=== PATIENT | female | born 1965 | race Caucasian/White ===

== ENCOUNTER → 2024-09-14 | Outpatient (CLI) | payer BC, SELFPAY ==
[2024-09-14 17:04] LABS: Collection Type, Urine Clean Catch
[2024-09-14 17:55] LABS: Basophils # (Auto) 0.1 Thou/mm3 (0.0-0.2); Basophils % (Auto) 1 % (0-2.5); Eosinophils # (Auto) 0.1 Thou/mm3 (0.0-0.5); Eosinophils % (Auto) 1 % (0-10); Hematocrit 37.9 % (36.0-46.0); Hemoglobin 12.2 g/dL (12.0-16.0); Immature Granulocytes % (Auto) 0 % (0-0); Immature Granulocytes Auto 0.03 Thou/mm3 (0.00-0.00); Lymphocytes % (Auto) 31 % (10-50); Mean Corpuscular HGB Conc 32.2 g/dl (31.0-37.0); Mean Corpuscular Hemoglobin 28.6 pg (25.0-35.0); Mean Corpuscular Volume 89 fL (80-100); Monocytes # (Auto) 0.8 Thou/mm3 (0.0-0.8); Monocytes % (Auto) 9 % (0-12); Neutrophils # (Auto) 5.7 Thou/mm3 (1.8-7.7); Neutrophils % (Auto) 59 % (37-80); Nucleated Red Blood Cell % 0 /100 WBC (0); Platelet Count 199 Thou/mm3 (140-440); RDW Standard Deviation 43.8 fL (36.4-46.3); Red Blood Count 4.27 Miln/mm3 (4.00-5.20); White Blood Count 9.7 Thou/mm3 (3.6-11.0)
[2024-09-14 18:07] LABS: Glucose Estimated Average 128 mg/dL (80-131); Hemoglobin A1C 6.1 % Hgb (4.8-6.0)
[2024-09-14 18:11] LABS: Alanine Aminotransferase 14 U/L (10-49); Albumin, Serum 4.5 gm/dL (3.4-4.8); Albumin/Globulin Ratio 1.7 (1.2-2.2); Alkaline Phosphatase 98 U/L (46-116); Anion Gap 8 (7-16); Aspartate Amino Transferase 14 U/L (0-34); BUN/Creatinine Ratio 20 Ratio (12-20); Bilirubin,Total 0.5 mg/dL (0.3-1.2); Blood Urea Nitrogen 16 mg/dL (9-23); Calcium 9.4 mg/dL (8.3-10.6); Calcium (Corrected) 9.4 mg/dL (8.5-10.1); Carbon Dioxide 27.9 mMol/L (20.0-31.0); Cardiac Risk Estimate 3.6 RATIO (3.7-5.6); Chloride 107 mMol/L (98-107); Cholesterol 189 mg/dL (132-200); Creatinine (Component) 0.8 mg/dL (0.6-1.3); Globulin 2.6 gm/dL (2.3-3.5); Glucose 88 mg/dL (74-106); HDL Cholesterol 53 mg/dL (40-60); LDL Cholesterol,Calculated 124 mg/dL (0-130); Osmolality,Calculated 285 (275-295); Potassium 3.9 mMol/L (3.4-5.1); Sodium 143 mMol/L (136-145); Total Protein 7.1 gm/dL (5.7-8.2); Triglycerides 58 mg/dL (30-150); eGFR > 60 See Note
[2024-09-14 18:14] LABS: Bilirubin,Urine Negative (Negative); Blood,Urine 2+ (Negative); Clarity,Urine Clear (Clear/Hazy); Color,Urine Lt-Yellow (Lt Yel-Yel); Culture Indicated,Urine Not Indicated; Glucose, Urine Negative (Negative); Ketones,Urine Negative (Negative); Leukocyte Esterase,Urine Negative (Negative); Nitrite,Urine Negative (Negative); PH,Urine 6.5 (5.0-7.0); Protein,Urine Negative (Neg - Trace); RBC,Urine 16 /hpf (0-3); Specific Gravity,Urine 1.019 (1.001-1.035); Squamous Epithelial Cell,Urine 1 /hpf (0-5); Urobilinogen,Urine Negative mg/dL (0.0-1.0); WBC,Urine 1 /hpf (0-5)
== END | disposition home or self-care (01) ==
LOC: COPL 16:37
PROVIDERS: PCP Nurse Practitioner Family; Referring Provider Nurse Practitioner Family; Visit Provider Nurse Practitioner Family
DX: E78.5 Hyperlipidemia, unspecified (principal); I10 Essential (primary) hypertension; N30.01 Acute cystitis with hematuria; R73.03 Prediabetes
CPT/HCPCS: 36415; 80053; 80061; 81001; 83036; 84443; 85025; 87086

== ENCOUNTER → 2024-09-23 | Outpatient (CLI) | payer BC, SELFPAY ==
[2024-09-23 14:28] LABS: Free T4 (Free Thyroxine) 1.03 ng/dL (0.89-1.76); Thyroid Stimulating Hormone 0.51 uIU/mL (0.55-4.78)
[2024-09-29 06:41] LABS: T3,Total* 110 ng/dL (76-181); Thyroid Peroxidase Antibodies* <1 IU/mL (<9)
== END | disposition home or self-care (01) ==
LOC: COPL 13:29
PROVIDERS: PCP Nurse Practitioner Family; Referring Provider Nurse Practitioner Family; Visit Provider Nurse Practitioner Family
DX: E05.40 Thyrotoxicosis factitia without thyrotoxic crisis or storm (principal)
CPT/HCPCS: 36415; 84439; 84443; 84480; 86376

== ENCOUNTER → 2024-10-12 | Outpatient (CLI) | payer BC, SELFPAY ==
--- NOTE | 2024-10-12 14:45 | XR_ITS ---
Examination: Screening digital mammography, bilateral Computer aided detection 3-D breast Tomosynthesis, bilateral Date and time of exam: October 12, 2024 1431 hours Compared to mammograms dating to 03/28/2006 Indication: Screening Technique: Nonmagnified MLO, CC views of the breasts to been obtained, reconstructed from 3-D Tomosynthesis images. R2 computer aided detection program utilized for evaluation of suspicious masses and/or abnormal calcifications. 3-D Tomosynthesis images obtained. Findings: Scattered areas of fibroglandular density. Skin lesion right breast. Benign calcifications. 4 mm focal asymmetry outer left breast 7.3 cm from the nipple IMPRESSION: BI-RADS Category 0 clinical pain: Need additional imaging evaluation 4 mm focal asymmetry outer left breast 7.3 cm from the nipple, recommend follow-up spot tomographic views upper outer quadrant left breast, bilateral breast sonography to complete the workup
== END | disposition home or self-care (01) ==
LOC: CDIM 14:22
PROVIDERS: Referring Provider Nurse Practitioner Family; Visit Provider Nurse Practitioner Family
DX: Z12.31 Encounter for screening mammogram for malignant neoplasm of breast (principal); R92.8 Other abnormal and inconclusive findings on diagnostic imaging of breast; N64.89 Other specified disorders of breast
CPT/HCPCS: 77063; 77067

== ENCOUNTER → 2024-10-13 | Outpatient (CLI) | payer BC, SELFPAY ==
--- NOTE | 2024-10-13 12:43 | XR_ITS ---
Examination: Diagnostic digital mammography, unilateral, LEFT Computer aided detection 3-D breast Tomosynthesis, unilateral Date and time of exam: October 13, 2024 1317 hours INDICATIONS: Mammogram October 12, 2024 4 mm focal asymmetry outer left breast Technique: Nonmagnified MLO, CC views of the left breast have been obtained, reconstructed from 3-D Tomosynthesis images. R2 computer aided detection program utilized for evaluation of suspicious masses and/or abnormal calcifications. 3-D Tomosynthesis images obtained. Findings: Scattered areas of fibroglandular density No suspicious mass noted Impression: BI-RADS category 2: Benign findings Recommend yearly follow-up mammography
--- NOTE | 2024-10-13 12:47 | XR_ITS ---
Examination: Breast ultrasound complete, bilateral Date and time of exam: October 13, 2024 1255 hours INDICATIONS: Mammogram October 12, 2024 4 mm focal asymmetry outer left breast 7.3 cm from the nipple Technique: Real-time grayscale ultrasonographic imaging bilateral breasts, including all 4 quadrants as well as nipple retroareolar and axillary regions. Findings: Sonographic images right breast 4:00 cyst 6 x 6 mm No solid nodules Sonographic images left breast 2:00 cyst 2 x 2 mm 9:00 cyst 4 x 4 mm No solid nodules IMPRESSION: BI-RADS Category 2: Benign findings
== END | disposition home or self-care (01) ==
PROVIDERS: PCP Nurse Practitioner Family; Referring Provider Nurse Practitioner Family; Visit Provider Nurse Practitioner Family
DX: R92.322 Mammographic fibroglandular density, left breast (principal); N60.01 Solitary cyst of right breast; N60.02 Solitary cyst of left breast
CPT/HCPCS: 76641; 77061; 77065; G0279